=== PATIENT | female | born 1990 | race African-American/Black ===

== ENCOUNTER 2019-04-12 15:23 | Emergency (ER) | payer SELFPAY ==
--- NOTE | 2019-04-12 16:07 | RAD ---
Exam:3 views left foot HISTORY: Pain. COMPARISON: None FINDINGS: Lisfranc alignment is maintained. Joint spaces are preserved. No fracture IMPRESSION: No fracture.
[2019-04-12] MEDS ORDERED: Ketorolac Tromethamine 30 MG/ML VIAL ONE (16:28)
== END 2019-04-12 16:49 | disposition home or self-care (01) ==
LOC: ERS 15:23
DX: M79.672 Pain in left foot (principal); E66.9 Obesity, unspecified
CPT/HCPCS: 96372; J1885

== ENCOUNTER 2019-06-28 10:03 | Emergency (ER) | payer BC, SELFPAY ==
[2019-06-28] MEDS ORDERED: Morphine 4 MG/ML VIAL ONE (10:33)
[2019-06-28] MEDS ORDERED: Ondansetron PF 4 MG/2 ML Vial ONE (10:33)
[2019-06-28 10:52] LABS: BHCG - Serum Negative (NEGATIVE); Pregs Control Background? CLEAR/WHITE (CLR/WHITE); Pregs Control Bar Appear? YES (CONTROL BAR)
[2019-06-28 10:52] LABS: #Basophils 0.1 thou/uL (0.0-0.2); #Eosinphils 0.1 thou/uL (0.0-0.7); #Lymphocytes 1.7 thou/uL (1.20-3.40); #Monocytes 0.6 thou/uL (0.11-0.59); #Neutrophils 5.2 thou/uL (1.40-6.50); %Basophils 0.9 % (0.0-1.0); %Eosinophils 1.3 % (0.0-10.0); %Lymphocytes 22.4 % (21.0-51.0); %Monocytes 7.3 % (0.0-10.0); %Neutrophils 68.1 % (42.0-75.0); Hemoglobin 9.8 g/dL (12.0-16.0); Mean Corpuscular HGB CONC 32.1 g/dL (32.0-36.0); Mean Corpuscular Hemoglobin 25.4 pg (27.0-31.0); Mean Corpuscular Volume 79.4 fL (78.0-98.0); Mean Platelet Volume 5.8 fL (7.4-10.4); Platelet Count 756 thou/uL (130-400); RBC Distribution Width 14.8 % (11.5-14.5); Red Blood Cell (RBC) Count 3.84 mill/uL (4.20-5.40); White Blood Cell (WBC) Count 7.7 thou/uL (4.8-10.8)
[2019-06-28 11:06] LABS: Bacteria/HPF 2+ HPF (None Seen); Bilirubin Negative (Negative); Blood, Urine 1+ (Negative); Clarity Clear (Clear); Glucose, Urine (Dipstick) Normal (Negative); Leukocyte 75 Leu/uL (Negative); Mucous/LPF 1+ LPF (<2+); Nitrite Negative (Negative); Protein, Urine (Dipstick) 10 mg/dL (Neg-Trace); RBC/HPF 0-3 HPF (0-3); Urobilinogen Normal mg/dL (Less than 2)
[2019-06-28 11:08] LABS: Pregnancy Test - Urine (BHCG) Negative (Negative); Pregu Control Background? CLEAR/WHITE (CLR/WHITE); Pregu Control Bar Appear? YES (CONTROL BAR); Specific Gravity 1.016 (1.002-1.036)
[2019-06-28 11:22] LABS: ALT (SGPT) 21 U/L (8-55); AST (SGOT) 17 U/L (5-34); Albumin 4.1 g/dL (3.5-5.0); Alkaline Phosphatase 114 U/L (40-110); Anion Gap 11 mmol/L (10-20); BUN (Urea Nitrogen) 6 mg/dL (7.0-18.7); Bilirubin, Total 0.8 mg/dL (0.2-1.2); CK (CPK) 120 U/L (29-168); Calc. Creatinine Clearance 0 mL/min (70-130); Calcium 9.2 mg/dL (7.8-10.44); Carbon Dioxide 24 mmol/L (22-29); Chloride 105 mmol/L (98-107); Estimated GFR-MDRD Greater than 90; Globulin 4.1 g/dL (2.4-3.5); Glucose 87 mg/dL (70-105); Lipase 6 U/L (8-78); Potassium 3.2 mmol/L (3.5-5.1); Protein, Total 8.2 g/dL (6.0-8.3); Sodium 137 mmol/L (136-145)
--- NOTE | 2019-06-28 12:03 | CT ---
CT ABDOMEN AND PELVIS WITH IV CONTRAST: INDICATION: Abdominal pain. Left upper quadrant pain. FINDINGS: Lung bases clear. The liver, spleen, and pancreas appear unremarkable. There is a peripherally calcified gallstone in the gallbladder fundus that measures up to 2.0 cm. No pericholecystic edema. Gallbladder is mildly distended. Adrenal glands and kidneys unremarkable. No hydronephrosis. Urinary bladder unremarkable. Small bowel loops appear normal. A radiopaque suture at the cecum may indicate prior appendectomy. Colon unremarkable. Images through the pelvis show a prominent uterus for age. Endometrium also appears prominent. Adne xal regions are unremarkable. A tiny involuting follicular cyst in the left ovary is seen measuring approximately 1.2 cm. No significant free fluid. Aorta normal caliber. Nonspecific retroperitoneal lymph nodes are seen. Lymph nodes in the left periaortic region below jose antonio cosme veins measure up to 1.3 cm AP dimension. IMPRESSION: 1. Cholelithiasis. 2. Nonspecific retroperitoneal lymph nodes. 3. Prominent uterus and endometrium. POS: [facility]
== END 2019-06-28 12:54 | disposition home or self-care (01) ==
LOC: ERS 10:03
DX: K80.20 Calculus of gallbladder without cholecystitis without obstruction (principal); N39.0 Urinary tract infection, site not specified; E87.6 Hypokalemia; E66.9 Obesity, unspecified
CPT/HCPCS: 74177; 80053; 81003; 81015; 81025; 82550; 83690; 84703; 85025; 96361; 96374; 96375; J2270; J2405

== ENCOUNTER → 2019-07-07 | Day surgery (SDC) | payer BC ==
[2019-07-06 14:21] VITALS: BMI 38.2
[~2019-07-07] MED LIST: Bupivacaine/Epinephrine 0.25% 30 ML VIAL ONE; Sodium Chloride 0.9% 100 ML ONE; cefOXitin 2 GM VIAL ONE
== END ==
LOC: SDC 12:47
PROVIDERS: ATTEND Surgery
DX: K80.20 Calculus of gallbladder without cholecystitis without obstruction (principal); Z53.8 Procedure and treatment not carried out for other reasons
CPT/HCPCS: J0694; J3490

== ENCOUNTER 2019-07-09 05:52 | Day surgery (SDC) | payer BC ==
[2019-07-08 12:08] VITALS: BMI 38.2
[2019-07-09] MEDS ORDERED: Sodium Chloride 0.9% 100 ML ONE (06:05)
[2019-07-09] MEDS ORDERED: cefOXitin 2 GM VIAL ONE (06:05)
[2019-07-09] MEDS ORDERED: Bupivacaine/Epinephrine 0.25% 30 ML VIAL ONE (06:41)
[2019-07-09] MEDS ORDERED: Ketorolac Tromethamine 30 MG/ML VIAL ONE (08:43)
[2019-07-09] MEDS ORDERED: Labetalol HCl 100 MG/20 ML VIAL ONE (08:43)
[2019-07-09] MEDS ORDERED: Fentanyl 100 MCG/2 ML VIAL ONE (08:48)
--- NOTE | 2019-07-09 12:13 | OP ---
DATE OF PROCEDURE: 07/09/2019 PREOPERATIVE DIAGNOSIS: Symptomatic cholelithiasis. PROCEDURE PERFORMED: Umbilical hernia repair, laparoscopic cholecystectomy. INDICATIONS: This is a 28-year-old female who has been having episodic right upper quadrant pain radiating to back, associated with nausea. CT scan showed gallstones. FINDINGS: She had a 2 cm umbilical hernia, small caliber cystic duct, healthy appearing liver. DESCRIPTION OF PROCEDURE: After informed consent was obtained, the patient was taken to the operating room and given general endotracheal anesthesia. She was placed in supine position. Abdomen was prepped and draped in usual fashion. Local anesthesia infiltrated subcutaneously and deep and a subumbilical incision was performed. The hernia sac was dissected out circumferentially down to the fascia and excised. Then, stay sutures of 0 Vicryl placed through side of the midline and a blunt 12-mm trocar inserted. Pneumoperitoneum was created to a pressure of 15 mmHg. A 0 degree laparoscope inserted under direct vision. Three 5 mm ports were placed subcostally. The gallbladder was grasped and advanced superiorly. The peritoneum was dissected to expose the cystic duct artery in critical view. The artery and duct were triply ligated with hemoclips and divided. The gallbladder removed from its fossa utilizing electrocautery, removed from the abdomen through the umbilical port. Hemostasis was assured. The umbilical fascia was closed transversely with interrupted [id number] of 0 Vicryl. Then, the umbilical skin was sutured to the fascia with interrupted 3-0 Vicryl and the skin closed with interrupted 4-0 Rapide. Dermabond applied. The patient tolerated the procedure well. Transferred to Recovery in good condition. Sponge and needle count verified correct x2. Job ID: [id number]
== END 2019-07-09 10:30 | disposition home or self-care (01) ==
LOC: SDC 05:52
PROVIDERS: ATTEND Surgery
PROC: 0FT44ZZ Resection of Gallbladder, Percutaneous Endoscopic Approach (ICD-10-PCS; principal; 2019-07-09)
DX: K80.10 Calculus of gallbladder with chronic cholecystitis without obstruction (principal); K42.9 Umbilical hernia without obstruction or gangrene
CPT/HCPCS: 88302; 88304; J0694; J1885; J3010; J3490

== ENCOUNTER 2021-08-17 23:47 | Emergency (ER) | payer BC ==
[2021-08-18 05:33] LABS: SARS-CoV-2 NAA Rapid Test Not Detected (NotDetected)
== END 2021-08-18 02:30 | disposition home or self-care (01) ==
LOC: ERS 23:47
DX: J02.9 Acute pharyngitis, unspecified (principal); Z20.822 Contact with and (suspected) exposure to COVID-19; E66.9 Obesity, unspecified
CPT/HCPCS: 0240U; 99283